=== PATIENT | female | born 2000 | race Two or more races ===

== ENCOUNTER 2022-11-19 19:07 | Emergency (ER) | payer MEDICAID, SELFPAY ==
[2022-11-19 19:12] VITALS: BP 138/88; PULSE 105; RESP 16; TEMP 37.1; O2SAT 98; BMI 25.2
--- NOTE | 2022-11-19 19:17 | ED_ITS ---
HPI - Female Genitourinary General Chief complaint: Urogenital-Female Stated complaint: Uti? Time Seen by Provider: 11/20/22 00:56 Source: patient Mode of arrival: ambulatory Limitations: no limitations History of Present Illness HPI Narrative: 22 year old female presents to ED with CC it hurts when I pee since yesterday. Reports burning sensation when urinating. Admits to urgency, but denies frequency. Slight hematuria on Tuesday, but expects menstrual cycle this week. No fever, chills or flank pain. Concered period is one day late and is sexually active. Admits periods can be irregular. She does state that she is not concerned for sexually transmitted infections as she is monogamous. MD elicited complaint: dysuria Related Data Previous Rx's Medication Instructions Recorded nitrofurantoin 100 mg PO Q12H 5 days #10 caps 11/20/22 monohydrate/macrocrystals 100 mg capsule (Macrobid) Allergies Allergy/AdvReac Type Severity Reaction Status Date / Time fluticasone AdvReac Hives Verified 11/19/22 19:12 [From Advair Diskus] salmeterol AdvReac Hives Verified 11/19/22 19:12 [From Advair Diskus] Review of Systems Constitutional: Constitutional: Reports as per HPI, Denies chills and Denies fever(s) Genitourinary: Genitourinary: Denies hematuria, Reports dysuria, Denies flank pain, Denies urinary incontinence and Reports urinary urgency PMFSH Social History Social History Advance Directives: No Advance Directives Information Provided: No Physical Exam Vital Signs: Vital Signs: Last Vital Signs Temp 99.7 F 11/20/22 01:24 Pulse 100 11/20/22 01:24 Resp 16 11/20/22 01:24 BP 127/60 11/20/22 01:24 Pulse Ox 98 11/20/22 01:24 O2 Del Method Room Air 11/20/22 01:24 BMI result Body Mass Index 25.2 Const: General: healthy appearing, comfortable, no acute distress, alert and awake Nutritional Appearance: well nourished : General: No no CVA tenderness Back/Spine/Pelvis: Back: No no CVA tenderness Course Course Course Narrative: RME performed by Brittny Christian PA-C. Patient is a 22 year old assigned female at presenting to the emergency department with burning with urination and concern being 1 day past her period. Labs ordered. Patient placed back in the waiting room pending room availability and results. Reevaluation(s) Reevaluation #1: UA indicative of mild UTI. Will treat with Macrobid b.i.d. x5 days Time: 01:57 Medical Decision Making Medical Decision Making MDM Narrative: 22-year-old female presents for evaluation of burning with urination, UA pending. She reports that she does have an OBGYN to follow up with. She is not . Gonorrhea chlamydia testing ordered, but the patient feels this is less likely and will not treat empirically. Differential Diagnosis Differential Diagnoses: The differential diagnosis associated with the presentation includes UTI Cystitis Gonorrhea Chlamydia Candidiasis Lab Data Labs: Lab Results 11/19/22 11/20/22 Range/Units 19:27 01:27 Urine Color Yellow Urine Appearance Clear Urine pH 6.0 (5.0-9.0) Ur Specific [place] >= 1.030 H (1.005-1.025) Urine Protein Trace (Neg-Trace) mg/dL Urine Glucose (UA) Negative (Negative) mg/dL Urine Ketones Negative (Negative) mg/dL Urine Blood Negative (Negative) Urine Nitrite Negative (Negative) Ur Leukocyte Esterase Small (1+) H (Negative) Urine RBC 6-10 H (0-2) /HPF Urine WBC 21-50 H (0-5) /HPF Ur Squamous Epith Cells 6-10 (0-2) /HPF Urine Bacteria None Seen (None Seen) Hyaline Casts 0-2 (0-2) /LPF Urine Test NEGATIVE (NEGATIVE) Discharge Plan Discharge Clinical Impression: Urinary tract infection Patient Disposition: Home, Self-Care Instructions: Urinary Tract Infection in Women (ED) Additional Instructions: Your urine does appear to show a mild infection Take Macrobid twice daily for the next 5 days, your 1st dose was given in the ER Follow-up with your OBGYN doctor You may also follow with Dr Mcmahan at the number provided Prescriptions: New nitrofurantoin monohyd/m-cryst [Macrobid] 100 mg capsule 100 mg PO Q12H 5 Days Qty: 10 0RF Rx Instructions: must administer with a meal/food Referrals: River Mcmahan MD [Physician] -
[2022-11-19 19:48] LABS: UPreg QC Valid YES; Urine Pregnancy NEGATIVE (NEGATIVE)
[2022-11-19 23:35] VITALS: BP 113/61; PULSE 92; TEMP 37.2; O2SAT 100
[2022-11-20 01:24] VITALS: BP 127/60; PULSE 100; RESP 16; TEMP 37.6; O2SAT 98
--- NOTE | 2022-11-20 01:31 | MHC.EDTECH ---
this pct just assumed care of pt vitals sign taken ,urine sample collected and sent to lab .
[2022-11-20 01:35] LABS: Appearance Urine Clear; Color Urine Yellow; Glucose Urine UA Negative (Negative); Leukocyte Esterase Urine Small (1+) (Negative); Nitrite Urine Negative (Negative); Specific Gravity - Urine >= 1.030 (1.005-1.025); UMIC TRIGGER UACC YES; Urine Blood Negative (Negative); Urine Ketones Negative (Negative); Urine Protein Trace mg/dL (Neg-Trace)
[2022-11-20 01:49] LABS: Bacteria Urine None Seen (None Seen); Hyaline Casts Urine 0-2 /LPF (0-2); UACC Culture Trigger YES; WBC Urine 21-50 /HPF (0-5)
[2022-11-20] MEDS: Nitrofurantoin Monohyd/M-Cryst 100 MG CAPSULE PO (02:11)
[2022-11-20 03:42] LABS: CT PCR NOT DETECTED (Not Detect.); NG PCR NOT DETECTED (Not Detect.)
== END 2022-11-20 02:17 | disposition home or self-care (01) ==
PROVIDERS: Physician Assistant Medical; Emergency Provider Internal Medicine; PCP Nurse Practitioner Pediatrics
DX: N39.0 Urinary tract infection, site not specified (principal)
CPT/HCPCS: 0353U; 81001; 81025; 87086; 99283; 99284

== ENCOUNTER 2023-04-07 11:43 | Outpatient (REF) | payer MEDICAID, SELFPAY | END 2023-04-07 11:44 | disposition home or self-care (01) | LOC: HO.CHCLDS 11:43 | PROVIDERS: Visit Provider Internal Medicine | DX: Z00.00 Encounter for general adult medical examination without abnormal findings (principal); Z11.2 Encounter for screening for other bacterial diseases | CPT/HCPCS: 36415; 86481 ==

== ENCOUNTER 2023-09-06 11:26 | Outpatient (REF) | payer MEDICAID, SELFPAY ==
[2023-09-06 14:34] LABS: MANUAL DIFF FLAG NO
[2023-09-06 14:39] LABS: Basophils Percent Auto 0.5 % (0-2); Eosinophils Absolute Auto 0.5 X10*3/uL (0.0-0.4); Eosinophils Percent Auto 6.3 % (0-4); Hematocrit 41.9 % (37.0-47.0); Hemoglobin 12.8 g/dl (12.0-16.0); Imm Gran Abs Auto 0.02 X10*3/uL (0.00-0.03); Imm Gran Pct Auto 0.3 % (0.0-0.4); Lymphocytes Absolute Auto 2.5 X10*3/uL (1.2-4.9); Lymphocytes Percent Auto 30.9 % (20-40); Mean Corpuscular HGB Conc 30.5 g/dl (31.0-35.0); Mean Corpuscular Hemoglobin 23.4 pg (27.0-33.0); Mean Corpuscular Volume 76.6 fL (80.0-98.0); Mean Platelet Volume 9.3 fL (9.4-12.3); Monocytes Absolute Auto 0.5 X10*3/uL (0.1-1.2); Monocytes Percent Auto 6.4 % (2-11); Neutrophils Absolute Auto 4.5 x10*3/uL (2.0-8.3); Neutrophils Percent Auto 55.6 % (45-73); Platelet Count 404 X10*3/uL (160-400); Red Blood Count 5.47 X10*6/uL (4.20-5.50); Red Cell Distribution Width 15.2 % (11.0-16.0)
[2023-09-06 15:16] LABS: Thyroid Stimulating Hormone 1.37 uIU/mL (0.32-4.0); Vitamin D 25-OH Total 34.9 ng/mL (>30)
== END 2023-09-06 11:27 | disposition home or self-care (01) ==
LOC: HO.CHCLDS 11:26
PROVIDERS: Visit Provider Student in an Organized Health Care Education/Training Program
DX: L63.9 Alopecia areata, unspecified (principal)
CPT/HCPCS: 36415; 82306; 84443; 85025

== ENCOUNTER 2025-02-14 11:24 | Emergency (ER) | payer MEDICAID, SELFPAY ==
--- NOTE | ~2025-02-14 | CT_ITS ---
CLINICAL HISTORY: constinued dysuria. hesitancy. r o stone Exam: Nonenhanced CT abdomen and pelvis with multiplanar reformats. Comparison: None. Findings: CT abdomen: Lung bases are clear. Liver is free of gross focal lesions and ductal dilatation. Gallbladder appears unremarkable. Spleen is unremarkable. Pancreas and adrenal glands appear unremarkable. Right kidney reveals a 5-6 mm nonobstructing upper pole calculus. Left kidney is free of nephrolithiasis and hydroureteronephrosis. However, there is a 3-4 mm calculus overlying left posterior bladder wall (3; 82 and 4; 544), in the expected region of the left ureteral orifice. There is no left hydroureteronephrosis. Findings could suggest recently or remotely passed ureteral calculus, versus nonobstructing left UVJ calculus. Kidneys otherwise unremarkable. No free intraperitoneal fluid or retroperitoneal masses or adenopathy. Abdominal aorta is normal caliber. Bowel loops reveal no abnormal wall thickening or distention. The appendix is unremarkable. CT pelvis: Right ovarian or adnexal cysts measuring up to 4.8 cm are present (3; 71,-1 Hounsfield units density). Uterus and adnexal structures otherwise unremarkable. Urinary bladder is free of other gross filling defects. No pelvic masses, fluid or adenopathy. Osseous structures reveal no destructive osseous lesions. Impression: 1. 3-4 mm calculus overlying posterior left bladder wall in the expected location of the left ureteral orifice. There is no left hydroureteronephrosis. Findings could suggest recently or remotely passed ureteral calculus, versus nonobstructing left UVJ calculus. 2. Small nonobstructing right renal calculus. This document has been electronically signed by: Dread Elizabeth MD on 02/14/2025 18:02:06
--- NOTE | ~2025-02-14 | US_ITS ---
EXAMINATION: US RETROPERITONEAL LIMITED (RENAL ONLY) CLINICAL INFORMATION: Left flank pain. COMPARISON: None available. TECHNIQUE: Real-time ultrasound kidneys using grayscale technique. FINDINGS: RIGHT KIDNEY: 10 x 5 x 4 cm (SAG x AP x TRV). Volume: 104 cc. Normal echotexture. Renal cortical thickness is normal. No hydronephrosis. No solid or cystic lesion. LEFT KIDNEY: 9 x 5 x 4 cm (SAG x AP x TRV) volume: 106 cc.. Normal echotexture. Renal cortical thickness is normal. No hydronephrosis. No solid or cystic lesion. There is a 4 mm hyperechoic structure in the midportion/lower pole junction US/US renal BI IMPRESSION: No hydronephrosis. Questionable 4 mm nonobstructing nephrolithiasis versus artifact, left kidney.. Electronically signed by: Krishna Goldberg MD 02/14/2025 02:48 PM EST
[2025-02-14 11:34] VITALS: BP 115/69; PULSE 89; RESP 18; TEMP 36.8; O2SAT 98; BMI 27.8
--- NOTE | 2025-02-14 11:39 | ED.GENADULT ---
HPI - General Adult General Chief complaint: Urogenital-Female Stated complaint: General Medical Time Seen by Provider: 02/14/25 13:14 Source: patient, RN notes reviewed and old records reviewed Mode of arrival: ambulatory History of Present Illness ED Provider: Jen Pearce PA-C HPI narrative: 24-year-old female with no significant past medical history presenting to the ED complaining of continued dysuria x2 weeks. Admits she was evaluated at [facility] and finished course of Macrobid 2 days ago without relief. States initially she had some left flank pain and urinary hesitancy, all now which is resolved accept dysuria. Denies any hematuria, flank pain at present, abdominal pain at present, nausea, vomiting, fever Related Data Previous Rx's ?Medication ?Instructions ?Recorded nitrofurantoin 100 mg PO Q12H 5 days #10 caps 11/20/22 monohydrate/macrocrystals 100 mg capsule (Macrobid) cefuroxime axetil 250 mg tablet 250 mg PO BID 7 days #14 tabs 02/14/25 tamsulosin 0.4 mg capsule (Flomax) 0.4 mg PO DAILY #14 caps 02/14/25 Allergies Allergy/AdvReac Type Severity Reaction Status Date / Time fluticasone (From Advair AdvReac Hives Verified 02/14/25 11:38 Diskus) salmeterol (From Advair AdvReac Hives Verified 02/14/25 11:38 Diskus) Review of Systems Review of Systems: Yes all other systems are reviewed and are negative Constitutional: Constitutional: Reports as per [facility] Past Medical History Attestation statement: The following information was validated with the patient. Source: old records reviewed Social History Social History Alcohol intake: never Physical Exam ED Vital Signs: Vital Signs - 24 hr 02/14/25 11:34 02/14/25 16:58 Temperature 98.2 F 97.0 F Pulse Rate 89 73 Respiratory Rate 18 16 Blood Pressure 115/69 106/59 L Pulse Oximetry 98 99 Oxygen Delivery Method Room Air Room Air BMI result Body Mass Index 27.8 Const General: cooperative, healthy appearing and no acute distress Orientation/consciousness: patient oriented x3 Limitations: no limitations HENMT Head: Yes normal to inspection and Yes atraumatic Ears: hearing grossly normal bilaterally General nose exam: Normal external nose present Face and sinus: Yes normal facial exam Eyes General: appearance normal, both eyes and all related structures EOM: EOMs intact bilaterally Neck Neck: Yes normal visual inspection and Yes no meningeal signs Resp Effort & Inspection: normal respiratory effort and no respiratory distress Cardio Rate: regular rate GI Inspection: Yes normal to inspection Palpation (GI): Soft to palpation, nontender, no guarding and not rigid General: Yes no CVA tenderness Back/Spine/Pelvis Back: no CVA tenderness Skin Rashes: no rashes Wounds: no wounds Neuro General: patient oriented x3, tone normal and no meningeal signs Cranial nerves: Yes CN's II-XII intact bilaterally Gait exam (Neuro): Normal gait present Extrem General: Yes normal to inspection Course Course Course Narrative: RME: 24 yold female recent treated for uti presents to the ED for lower abdominal pain and pressure on urination. patient complete antbiotics, but still having symptoms. labs and UA orderd - UA infected - labs unremarkable US renal BI IMPRESSION: No hydronephrosis. Questionable 4 mm nonobstructing nephrolithiasis versus artifact, left kidney. > results discussed with patient. With shared decision-making she would like to obtain CT AP in the ED for further eval of possible stone which could be related to persistent UTI symptoms - rather than defer to PCP follow-up. 1823--CT abdomen pelvis wo IV con Impression: 1. 3-4 mm calculus overlying posterior left bladder wall in the expected location of the left ureteral orifice. There is no left hydroureteronephrosis. Findings could suggest recently or remotely passed ureteral calculus, versus nonobstructing left UVJ calculus. 2. Small nonobstructing right renal calculus. > will consult Urology for infected stone > spoke with Dr. Brown who recommended a different antibiotic, Flomax, L IVF prior to discharge and follow up in the office. >1840-- patient would like to defer IVF at this time and is agreeable to increase p.o. fluid intake at home. Results discussed with patient including worrisome signs and symptoms and strict return precautions, and when to return to the emergency department. They verbalized understanding and feel safe for discharge at this time. Medical Decision Making Medical Decision Making [facility] Narrative: 24-year-old female with no significant past medical history presenting to the ED complaining of continued dysuria x2 weeks. on exam vital signs stable, NAD, nontoxic appearing, no CVAT. Abdomen is soft and nontender. Concern for persistent UTI vs passed stones/ retained stone. lower suspicion for acute pyelonephritis without CVAT on exam. Low suspicion for severe sepsis. Unlikely appendicitis, diverticulitis, ovarian torsion Plan: Labs, UA, ultrasound, re-evaluate Please refer to course for remaining clinical decision making, interpretation of labs/imaging results, and discussions with consultants and/or family members. Differential Diagnosis Differential Diagnoses: The differential diagnosis associated with the presentation includes As above Admission/Observation Consideration of admission/observation: Escalation of care including admission/observation considered Lab Data MDM Lab Attestation statement: I reviewed the patient's lab results. 02/14/25 13:04 02/14/25 13:04 Labs: Lab Results 02/14/25 02/14/25 Range/Units 12:30 13:04 WBC 9.8 (4.8-10.8) X10*3/uL RBC 5.37 (4.20-5.50) X10*6/uL Hgb 13.2 (12.0-16.0) g/dl Hct 42.3 (37.0-47.0) % MCV 78.8 L (80.0-98.0) fL MCH 24.6 L (27.0-33.0) pg MCHC 31.2 (31.0-35.0) g/dl RDW 15.6 (11.0-16.0) % Plt Count 368 (160-400) X10*3/uL MPV 8.8 L (9.4-12.3) fL Immature Gran % (Auto) 0.2 (0.0-0.4) % Neut % (Auto) 58.1 (45-73) % Lymph % (Auto) 29.5 (20-40) % [place] % (Auto) 5.6 (2-11) % Eos % (Auto) 5.9 H (0-4) % Baso % (Auto) 0.7 (0-2) % Lymph # (Auto) 2.9 (1.2-4.9) X10*3/uL [place] # (Auto) 0.6 (0.1-1.2) X10*3/uL Eos # (Auto) 0.6 H (0.0-0.4) X10*3/uL Baso # (Auto) 0.1 (0.0-0.2) X10*3/uL Abs Immat Gran (auto) 0.02 (0.00-0.03) X10*3/uL Absolute Neuts (auto) 5.7 (2.0-8.3) x10*3/uL Absolute Nucleated RBC 0.000 (0.0-0.012) X10*3/uL Nucleated RBC % (auto) 0.0 (0.0-0.2) /100WBC Sodium 140 (135-145) mmol/L Potassium 4.0 (3.3-5.1) mmol/L Chloride 107 (96-108) mmol/L Carbon Dioxide 25 (22-29) mmol/L Anion Gap 12 (12-20) BUN 10 (9-16) mg/dL Creatinine 0.68 (0.5-1.4) mg/dL Estim Creat Clear Calc 121.6 Estimated GFR > 60 Random Glucose 85 (60-115) mg/dL Calcium 9.4 (8.4-10.2) mg/dL Total Bilirubin 0.7 (0.0-1.0) mg/dL AST 15 (5-31) U/L ALT 15 (0-31) U/L Alkaline Phosphatase 87 (39-117) U/L Total Protein 7.5 (6.5-8.0) g/dL Albumin 4.4 (3.5-5.0) g/dL Beta HCG, Quant < 2 mIU/mL Urine Color Yellow Urine Appearance Clear Urine pH 6.0 (5.0-9.0) Ur Specific [place] 1.025 (1.005-1.025) Urine Protein Trace (Neg-Trace) mg/dL Urine Glucose (UA) Negative (Negative) mg/dL Urine Ketones Trace (Negative) mg/dL Urine Blood Small (1+) H (Negative) Urine Nitrite Negative (Negative) Ur Leukocyte Esterase Moderate (2+) H (Negative) Urine RBC 11-20 H (0-2) /HPF Urine WBC 11-20 H (0-5) /HPF Ur Squamous Epith Cells 6-10 (0-2) /HPF Urine Bacteria 3+ (None Seen) Hyaline Casts 0-2 (0-2) /LPF Urine Test NEGATIVE (NEGATIVE) Independent Interpretation I performed an independent interpretation of an: Ultrasound Radiology Impression Discussion of test interpretation with radiology: I have reviewed the radiologist's reading. External Record Review External record reviewed: Inpatient record, Office record, Outpatient record, Prior outpatient labs, Prior outpatient radiology, Primary care record and Outside ED record Tests considered The following testing was considered but not selected: As above Prescription Management I considered prescription management with: Pain Medication and Antibiotic Chronic Conditions Patient?s care impacted by: Other Social Determinants Patient?s care significantly limited by Social Determinants of Health including: Other Social Determinant of Health Critical Care Time Critical Care Time Critical Care Time: Yes Total Critical Care Time: 35 Attestation: I have personally provided critical care time exclusive of time spent on separately billable procedures. Time includes review of lab data, radiology results, discussion with consultants, and monitoring for potential decompensation. Intervention performed as documented. Discharge Plan Discharge Clinical Impression: Urinary tract infection, Calculus of ureterovesical junction (UVJ) Patient Disposition: Home, Self-Care Instructions: Urinary Tract Infection in Women (DC), Ureteral Stones (ED) Additional Instructions: You have a 3-4 mm kidney stone in the left side and a urine infection Flomax will help dilate the ureter to help pass the stone Ceftin as an antibiotic please take as prescribed Make sure you are drinking plenty of fluids at home You need to follow up with Urology closely, call to make an appointment If her symptoms persist or worsen you have constant or unremitting pain, fever, chills, difficulty or inability to urinate return to the ED Prescriptions: New cefuroxime axetil 250 mg tablet 250 mg PO BID 7 Days Qty: 14 0RF tamsulosin [Flomax] 0.4 mg capsule 0.4 mg PO DAILY Qty: 14 0RF No Action nitrofurantoin monohyd/m-cryst [Macrobid] 100 mg capsule 100 mg PO Q12H 5 Days Qty: 10 0RF Rx Instructions: must administer with a meal/food Referrals: [facility] [Provider Group, Urology] - 5 days Stand Alone Forms: Work/School Release Interventions: ED Discharge Assessment Last Done: 02/14/25 18:54 Discharge Date/Time: 02/14/25 18:55 Print Language: Kiswahili
[2025-02-14 12:55] LABS: Appearance Urine Clear; Glucose Urine UA Negative (Negative); PH 6.0 (5.0-9.0); Specific Gravity - Urine 1.025 (1.005-1.025); UMIC TRIGGER UACC YES
[2025-02-14 12:56] LABS: UPreg QC Valid YES
[2025-02-14 13:00] LABS: UACC Culture Trigger YES
[2025-02-14 13:09] LABS: MANUAL DIFF FLAG NO
[2025-02-14 13:18] LABS: Hematocrit 42.3 % (37.0-47.0); Hemoglobin 13.2 g/dl (12.0-16.0); Imm Gran Abs Auto 0.02 X10*3/uL (0.00-0.03); Imm Gran Pct Auto 0.2 % (0.0-0.4); Lymphocytes Absolute Auto 2.9 X10*3/uL (1.2-4.9); Mean Corpuscular HGB Conc 31.2 g/dl (31.0-35.0); Mean Corpuscular Hemoglobin 24.6 pg (27.0-33.0); Mean Corpuscular Volume 78.8 fL (80.0-98.0); NRBC Abs Auto 0.000 X10*3/uL (0.0-0.012); NRBC Pct Auto 0.0 /100WBC (0.0-0.2); Platelet Count 368 X10*3/uL (160-400); Red Blood Count 5.37 X10*6/uL (4.20-5.50); White Blood Count 9.8 X10*3/uL (4.8-10.8)
[2025-02-14 13:54] LABS: Alanine Aminotransferase 15 U/L (0-31); Albumin Level 4.4 g/dL (3.5-5.0); Alkaline Phosphatase 87 U/L (39-117); Anion Gap 12 (12-20); Aspartate Amino Transferase 15 U/L (5-31); Blood Urea Nitrogen 10 mg/dL (9-16); Calcium 9.4 mg/dL (8.4-10.2); Carbon Dioxide 25 mmol/L (22-29); Chloride 107 mmol/L (96-108); Creatinine Clr Calc Pharmacy 121.6; Estimated Glomerular Filt Rate > 60; Potassium 4.0 mmol/L (3.3-5.1); Sodium 140 mmol/L (135-145); Total Protein 7.5 g/dL (6.5-8.0)
--- OUTSIDE RECORDS SUMMARY | 2025-02-14 15:35 | XMS_ITS | Clinical Summary ---
Author Organization [facility] Address [address] [place] [address] Care Team Providers Care Employee Benefits Specialist Name Role Phone Unavailable Primary Care Provider Unavailabl e Surgical History Surgery Date Site/Laterality Comments OTHER SURGICAL HISTORY PROCEDURE: DENIES PREVIOUS SURGERY Medical History Medical History Date Comments Asthma DX:Asthma Hypoglycemia DX:Hypoglycemia Human papilloma virus (HPV) type 9 vaccine administered DX:Human papilloma virus (HP V) type 9 vaccine administered; COMMENT: [id number] @ [facility], pedi Family History Medical History Relation Name Comments Depression Father Hypertension Father Hypertension Maternal Grandfather Asthma Mother Diabetes Paternal Grandfather Hypertension Paternal Grandfather Relation Name Status Comments Father Alive Maternal Grandfather Alive Mother Alive Paternal Grandfather Alive Social History Tobacco Use Types Packs/Day Years Used Date Smoking Tobacco: Never Smokeless Tobacco: Never Alcohol Use Standard Drinks/Week Comments No 0 (1 standard drink = 0.6 oz pur e alcohol) Comments Unknown Sex and Gender Information Value Date Recorded Sex Assigned at Not on file Legal Sex Female 5:01 AM EST Gender Identity Not on file Sexual Orientation Not on file Obstetrics History Plan of Treatment Health Maintenance Due Date Last Done Comments Gonorrhea/Chlamydia Screening 2001 HPV Vaccines (1 - 3-dose series) 2016 Meningococcal B Vaccine (1 o f 2 - Standard) 2017 DTaP,Tdap,and Td Vaccines (1 - Tdap) 2020 Hepatitis B Vaccines (1 of 3 - 19+ 3-dose series) 2020 HIV Screening 03/07/2022 Hepatitis C Screening 03/07/2022 Social Influencers of Health Screening 03/07/2022 Cervical Cancer Screening: P ap Smear 2022 Depression Screening 04/04/2024 COVID-19 Vaccine (1 - 2024-2 6 season) 2024 Influenza Vaccine (#1) 2024 RSV Immunization Adult Patie nts (1 - 1-dose 75+ series) 2076 HIB Vaccines Aged Out No longer eligi ble based on patient's age to complete this topic Hepatitis A Vaccines Aged Out No long er eligible based on patient's age to complete this topic IPV Vaccines Aged Out No longer eligi ble based on patient's age to complete this topic MMR Vaccines Aged Out No longer eligi ble based on patient's age to complete this topic Meningococcal ACWY Vaccine Aged Out N o longer eligible based on patient's age to complete this topic Pneumococcal Vaccine: Pediat rics (0 to 5 Years) and At-Risk Patients (6 to 49 Years) Aged Out No longer eligible b ased on patient's age to complete this topic RSV Immunization Patients Un dixie 20 months Aged Out No longer eligible b ased on patient's age to complete this topic Varicella Vaccines Aged Out No longer eligible based on patient's age to complete this topic
--- OUTSIDE RECORDS SUMMARY | 2025-02-14 15:35 | XMS_ITS | Clinical Summary ---
Author Organization [employer] Address [address] [place] [address] Care Team Providers Care Banana Handler Name Role Phone Romi Hickey MD Primary Care Provider [phone] Allergies Active Allergy Reactions Criticality Noted Date Comments Fluticasone 05/02/2017 Salmeterol 05/02/2017 Medications albuterol 108 (90 Base) MCG/ACT inhalerIndication s:Mild intermittent asthma without complication Inhale 2 puffs every 4 (four) hours if needed for wheezing. 18 g 4 Active pyrithione zinc ([place] Blue Itchy Dry Scalp) 1 % shampoo Apply topically if needed each day for dandruff. 240 mL 2 4 Active minoxidil (Rogaine) 2 % external solution Apply topically 2 times daily. 60 mL 2 4 Active Active Problems Problem Noted Date Diagnosed Date Asthma 05/02/2017 04/07/2023 Dysmenorrhea 05/02/2017 04/07/2023 Encounters Date Type Department Care Team Description 01/22/2025 Telephone [facility] [address] [place] [id number] Romi Hickey MD Nurse Triage 12/24/2024 Travel 12/24/2024 Telephone [facility] [address] [place] [address] Romi Hickey MD Nurse Triage from Last 3 Months Immunizations Immunization Administration Dates Next Due Influenza injectable quadrivalent preservative f ree 04/07/2023 Social History Tobacco Use Types Packs/Day Years Used Date Smoking Tobacco: Never Passive Smoke Exposure: Never Smokeless Tobacco: Never Tobacco Cessation:Counseling Given: Not Answered Alcohol Use Standard Drinks/Week Comments Never 0 (1 standard drink = 0.6 oz pur e alcohol) Depression Answer Date Recorded Patient Health Questionnaire-9 Score 0 04/07/2023 Patient Health Questionnaire-9 Score 0 04/07/2023 Last PHQ-9: Questionnaire Data Not on file 0 04/07/2023 Depression Answer Date Recorded Patient Health Questionnaire-2 Score 0 04/07/2023 Comments Unknown Sex and Gender Information Value Date Recorded Sex Assigned at Female 02/01/2022 10:33 AM EDT Legal Sex Female 10:33 AM EDT Gender Identity Female 02/01/2022 10:33 AM EDT Sexual Orientation Straight 02/01/2022 10 :33 AM EDT Last Filed Vital Signs Vital Sign Reading Time Taken Comments Blood Pressure 113/72 09/06/2023 11:07 AM EDT Pulse 80 09/06/2023 11:07 AM EDT Temperature 36.8 C (98.3 F) 09/06/2023 11:07 AM EDT Respiratory Rate 16 09/06/2023 11:07 AM EDT Oxygen Saturation 98% 09/06/2023 11:07 AM EDT Inhaled Oxygen Concentration - - Weight 68 kg (150 lb) 09/06/2023 11:07 AM EDT Height 162.3 cm (5' 3.88 ) 09/06/2023 11:07 AM E DT Body Mass Index 25.84 09/06/2023 11:07 AM EDT Plan of Treatment Health Maintenance Due Date Last Done Comments HIV Screening 2001 SDOH Screening 2001 Pneumococcal Vaccine: Pediatrics (0 to 5 Years) and At-Risk Patients (6 to 49) Years (1 of 1 - PPSV23, PCV20, or PCV21) 10/21/2007 03/15/2003, 04/25/2002, 01/11/2002 Alcohol/Substance Use Screening 2013 Family Planning (PISQ) 2016 Meningococcal B Vaccine (1 of 2 - Standard) 2017 Hepatitis C Screening 10/21/2019 Pap Smear 2022 DTaP/Tdap/Td Vaccines (7 - Td or Tdap) 12/27/2022 12/27/2012, 2005, 03/15/2003, Additional history exists Chlamydia and Gonorrhea Screening 11/21/2023 11/20/2022 Depression Screening 04/07/2024 04/07/2023, 04/07/19 24 Tobacco Screening 09/05/2024 09/06/2023 COVID-19 Vaccine ( season) 2024 09/06/2021, 09/02/2020, 08/06/2020 Influenza Vaccine (#1) 2024 , 12/18/2018, 01/30/2018, Additional history exists Disability Screening 12/24/2025 12/24/2024 Zoster Vaccines (1 of 2) 10/21/2051 RSV Patients and Patients Aged 60 years or older (1 - 1-dose 75+ series) 2076 HIB Vaccines Aged Out 04/25/2002, 08/2001, 2001 No longer eligible based on patient's age to complete this topic IPV Vaccines Completed 2005, 04/05, 03/08/2002, Additional history exists Hepatitis A Vaccines Completed 12/27/2012, 03/03/20 11 HPV Vaccines Completed 11/27/2013, 02/03, 12/27/2012 Hepatitis B Vaccines Completed 01/30/2018, 04/25/2002, 03/08/2002, Additional history exists Meningococcal Vaccine Completed 01/30/2018, 013 RSV under 20 months Aged Out No longe r eligible based on patient's age to complete this topic Rotavirus Vaccines Aged Out No longer eligible based on patient's age to complete this topic Procedures Procedure Name Priority Date/Time Associated Diagnosis Comments CHLAMYDIA/N. GONORRHOEAE RNA, TMA, UROGENITAL Routine 11/20/2022 1:28 AM EDT from Last 3 Months or Most Recently Relevant to Health Maintenance Results * Chlamydia/N. Gonorrhoeae RNA, TMA, Urogenitial (11/20/2022 1:28 AM EDT) CT PCR NOT DETECTED Not Detect. [facility] Comment:A not detected test result does not exclude the possibilityof infection because test results can be affected byimproper specimen collection, concurrent antibiotic therapy,or the number of organisms in the specimen which may bebelow the sensitivity of the test. As with many diagnostictests, results from the Xpert CT/NG assay should beinterpreted in conjunction with other laboratory andclinical data available to the clinician.Xpert CT/NG performance has not been evaluated in patientsless than 14 years of age. The assay should not be used forthe evaluationof suspected sexual abuse or for other medico-legalindications. Additional testing is recommended in anycircumstance when false positive or false negative resultscould lead to adverse medical, social or psychologicalconsequences. NG PCR NOT DETECTED Not Detect. [facility] Comment:A not detected test result does not exclude the possibilityof infection because test results can be affected byimproper specimen collection, concurrent antibiotic therapy,or the number of organisms in the specimen which may bebelow the sensitivity of the test. As with many diagnostictests, results from the Xpert CT/NG assay should beinterpreted in conjunction with other laboratory andclinical data available to the clinician.Xpert CT/NG performance has not been evaluated in patientsless than 14 years of age. The assay should not be used forthe evaluationof suspected sexual abuse or for other medico-legalindications. Additional testing is recommended in anycircumstance when false positive or false negative resultscould lead to adverse medical, social or psychologicalconsequences. 11/20/2022 1:28 AM EDT 11/20/2022 1:31 AM EDT Narrative [facility] - 11/20/2022 3:43 AM EDT WRONG CONTAINER AND QNSUrine us [facility] Exter nal Provider LAB MICROBIOLOGY - GENERAL ORDERABLES Final Result [facility] [address] [place] [address] [phone] from Last 3 Months or Most Recently Relevant to Health Maintenance Insurance [facility] C3 Care Teams Banana Handler Relationship Specialty Start Date End Date Romi Hickey MD [address] [place] [id number] PCP - General Internal Medicine 09/06/23
[2025-02-14 16:58] VITALS: BP 106/59; PULSE 73; RESP 16; TEMP 36.1; O2SAT 99
[2025-02-14 18:00] VITALS: BP 123/95; PULSE 91; RESP 16; TEMP 36.3; O2SAT 99
[2025-02-14 18:54] VITALS: BP 123/95; PULSE 91; RESP 16; TEMP 36.3; O2SAT 99
== END 2025-02-14 18:55 | disposition home or self-care (01) ==
PROVIDERS: Physician Assistant; Emergency Provider Emergency Medicine
DX: N39.0 Urinary tract infection, site not specified (principal); N20.1 Calculus of ureter; R30.0 Dysuria; Z79.899 Other long term (current) drug therapy
CPT/HCPCS: 36415; 74176; 76775; 80053; 81001; 81025; 84702; 85025; 87086; 99283

== ENCOUNTER → 2025-02-14 14:15 | Outpatient (BNV) | payer MEDICAID, SELFPAY | PROVIDERS: Visit Provider Radiology Diagnostic Radiology | DX: N20.2 Calculus of kidney with calculus of ureter (principal); R10.A2 Flank pain, left side | CPT/HCPCS: 74176; 76775 ==

== ENCOUNTER 2025-03-29 10:50 | Outpatient (REF) | payer MEDICAID, SELFPAY | END 2025-03-29 10:51 | disposition home or self-care (01) | LOC: HO.LAB 10:50 | PROVIDERS: Visit Provider Urology | DX: Z13.89 Encounter for screening for other disorder (principal); N20.0 Calculus of kidney | CPT/HCPCS: 81003; 82365; 88300; 99202 ==

== ENCOUNTER 2025-03-29 10:50 | Outpatient (AMB) | payer MEDICAID, SELFPAY ==
--- OUTSIDE RECORDS SUMMARY | 2025-03-29 10:53 | XMS_ITS | Clinical Summary ---
Author Organization [employer] Address [address] [facility] [address] [place] [address] Care Team Providers Care Heel Top Lift Splitter Name Role Phone Romi Hickey MD Primary Care Provider [phone] Allergies Active Allergy Reactions Criticality Noted Date [...] Encounters Date Type Department Care Team Description 03/15/2025 Travel 01/22/2025 Telephone [facility] [address] [place] [address] Romi Hickey MD Nurse Triage from Last [...] 09/06/2023 11:07 AM EDT Plan of Treatment Upcoming Encounters Date Type Department Care Team (Late st Contact Info) Description 07/25/2025 11:00 AM EDT Office Visit [facility] [address] [place] [address] Roxana Barrett, OD [address] [place] [address] Health Maintenance Due Date Last Done Comments [...] Tobacco Screening 09/05/2024 09/06/2023 COVID-19 Vaccine ( - season) 2024 09/06/2021, 09/02/2020, 08/06/2020 Influenza Vaccine [...] EDT) CT PCR NOT DETECTED Not Detect. [facility] Comment:A not detected test result does [...] psychologicalconsequences. NG PCR NOT DETECTED Not Detect. [facility] Comment:A not detected test result does [...] AM EDT 11/20/2022 1:31 AM EDT Narrative [facility] - 11/20/2022 3:43 AM EDT WRONG CONTAINER AND QNSUrine us [facility] Exter nal Provider LAB MICROBIOLOGY - GENERAL ORDERABLES Final Result [facility] [address] [place] [address] [phone] from Last 3 Months or Most Recently Relevant to Health Maintenance Insurance [facility] C[facility] Care Teams Heel Top Lift Splitter Relationship Specialty Start Date End Date Romi Hickey MD [address] [place] [id number] PCP - General Internal Medicine 09/06/23
--- OUTSIDE RECORDS SUMMARY | 2025-03-29 10:53 | XMS_ITS | Clinical Summary ---
Author Organization [facility] Address [address] [place] [address] Care Team Providers Care Glass Installer Technician Name Role Phone Unavailable Primary Care Provider Unavailabl e Surgical History Surgery Date Site/Laterality Comments OTHER SURGICAL HISTORY PROCEDURE: DENIES PREVIOUS SURGERY Medical History Medical History Date Comments Asthma DX:Asthma Hypoglycemia DX:Hypoglycemia Human papilloma virus (HPV) type 9 vaccine administered DX:Human papilloma virus (HP V) type 9 vaccine administered; COMMENT: [id number] @ [facility], pedi Family History Medical History Relation Name [...] on file Sexual Orientation Not on file Plan of Treatment Health Maintenance Due Date [...] Smear 2022 Depression Screening 04/04/2024 COVID-19 Vaccine ( - 2024-2 6 season) 2024 Influenza Vaccine [...]
--- NOTE | 2025-03-29 11:02 | A.OFFVIS_ITS ---
Intake Visit Reasons: Kidney stone/HX Dysuria/UA(Set) Intake Note: Reason for Visit: New Patient Kidney Stone/Stone in Bladder Junction/Dysuria Urology Meds: Tamsulosin Blood Thinners: None Labs: BUN: 10 Creatinine: 0.68 (02/14/2025) Culture: 02/14/2025 Imaging: Abdomen/Pelvis CT 02/14/2025 Last PVR: None Family History: Prostate Cancer? No Bladder Cancer? No Kidney Cancer? No Smoking History? No Previous Urology? No Has Family history of Kidney stones Material Control Clerk Required: No Accompanied by: Self / Same As Patient Allergies fluticasone (From Advair Diskus) Adverse Reaction (Verified 03/29/25 11:14) Hives salmeterol (From Advair Diskus) Adverse Reaction (Verified 03/29/25 11:14) Hives HPI Comments Details: 03/29/25--History of Present Illness The patient is a 24 year old female presenting as a new patient for evaluation of kidney stones. She presented to the emergency room in February and underwent a CT scan on 02/14/25, which revealed a 6 mm stone in the right kidney and a 3-4 mm distal left ureterovesical junction (UVJ) stone. The patient reports having passed a stone since the scan. We will send stone for analysis. I discussed r ight kidney shockwave lithotripsy to manage the right kidney stone. Discussed risks to include but not limited to, blood in the urine, bruising to the skin, kidney hematoma, possible need for another procedure if a stone fragment obstructs the ureter while passing, possible need to repeat procedure if stone is not completely fragmented. Also we will get 24 hour urine collection. Results - CT scan on 02/14/25: Showed a 6-mm right kidney stone and a 3 to 4-mm distal left UVJ stone. Plan Right ESWL. 24 hour [facility] Medical History Dysuria Social History Alcohol intake: never Review of Systems Const All systems reviewed & are unremarkable except as noted in HPI and below Reports no additional complaints Eyes Reports no additional complaints ENT Reports no additional complaints Card Reports no additional complaints Resp Reports no additional complaints GI Reports no additional complaints Reports as per HPI Musc Reports no additional complaints Skin/Breast Reports system reviewed and no additional complaints, except as documented Neuro Reports no additional complaints Psych Reports no additional complaints Endo Reports no additional complaints José/Lymph Reports no additional complaints Aller/Immun Reports no additional complaints Physical Exam Const General: cooperative, healthy appearing and no acute distress Orientation/consciousness: patient oriented x3 HEENT Head: Yes normal to inspection, Yes normocephalic and Yes atraumatic Eyes Conjunctivae: conjunctivae normal Neck Neck: Yes normal visual inspection and Yes trachea midline Chest Chest palpation & inspection: normal inspection of the chest Resp Effort & Inspection: normal respiratory effort GI Inspection: Yes normal to inspection Neuro General: patient oriented x3 Psych Appearance: grossly normal Results AMB Urinalysis, Automated UA Leukoctes 0 Oma/uL Last Edit by Yesenia Slaughter [facility] on 03/29/25 13:09 UA Nitrite Negative Last Edit by Yesenia Slaughter [facility] on 03/29/25 13:09 UA Urobilinogen 0.2 mg/dL Last Edit by Yesenia Slaughter [facility] on 03/29/25 13:0 9 UA Protein 15 mg/dL Last Edit by Yesenia Slaughter [facility] on 03/29/25 13:09 UA pH 6.0 Last Edit by Yesenia Slaughter [facility] on 03/29/25 13:09 UA Blood 0 Andre/uL Last Edit by Yesenia Slaughter [facility] on 03/29/25 13:09 UA Specific [place] 1.025 Last Edit by Yesenia Slaughter [facility] on 03/29/25 13: 09 UA Ketone Negative Last Edit by Yesenia Slaughter [facility] on 03/29/25 13:09 UA Bilirubin 0 mg/dL Last Edit by Yesenia Slaughter [facility] on 03/29/25 13:09 UA Glucose 0 mg/dL Last Edit by Yesenia Slaughter [facility] on 03/29/25 13:09 Assessment & Plan Assessment & Plan (1) Right renal stone: Code(s): N20.0 - Calculus of kidney Category: Medical Plan Plan Right ESWL. 24 hour urine collection Orders: Orders Surgical Today N20.0 - Calculus of kidney US renal BI Today N20.0 - Calculus of kidney AMB Urinalysis Automated Today Z13.9 - Encounter for screening, unspecified Medications: Discontinued cefuroxime axetil Discontinued Reason: Patient Completed Course 250 mg PO BID 7 days 14 tabs 0RF tamsulosin (Flomax) Discontinued Reason: Patient Completed Course 0.4 mg PO DAILY 14 caps 0RF nitrofurantoin monohyd/m-cryst 100 mg (Macrobid) must administer with a meal/food Discontinued Reason: Patient Completed Course 100 mg PO Q12H 5 days 10 caps 0RF Patient Instructions: The patient had an opportunity to ask questions regarding treatment plan. The patient expressed understanding and agreement with the above treatment plan. The patient is aware they should contact our office by phone for worsening of their current condition or the appearance of new symptoms. Compliance is encouraged with any medications and followup testing that is ordered. It is a privilege to be allowed the opportunity to participate in the urologic care of your patient. If you have any questions or concerns regarding treatment for the above conditions please do not hesitate to contact me. The office telephone contact is [phone]. This note is constructed in part using voice recognition software. While every effort has been made to ensure accuracy nightclub manager errors may have been included. Yours sincerely, Jp item was really in a semi you MD Katharine Scribe Plan - Not visible on output: Patient was informed and verbally consented to the use of an ambient scribe for clinic note documentation during this visit. Coding Level of Care Code New Pt Level 4 (79003) Diagnoses Right renal stone N20.0
== END 2025-03-29 12:07 | disposition home or self-care (01) ==
LOC: HO.HUSH 10:51
PROVIDERS: Visit Provider Urology
DX: N20.0 Calculus of kidney (principal); Z13.9 Encounter for screening, unspecified
CPT/HCPCS: 99204